=== PATIENT | male | born 1985 | race Hispanic/Latino ===

== ENCOUNTER 2020-10-23 14:05 | Emergency (ER) | payer SELFPAY ==
[~2020-10-23] VITALS: Ht 177.8 cm; Wt 96.2 kg
[2020-10-23] MEDS ORDERED: FAMOTIDINE20 MG PO (14:33)
[2020-10-23] MEDS ORDERED: ZOFRAN4 MG PO (14:33)
[2020-10-23] MEDS ORDERED: MAALOX MAXIMUM355 ML PO (14:33)
== END 2020-10-23 14:52 | disposition home or self-care (01) ==
LOC: FSED 14:33
DX: R11.2 Nausea with vomiting, unspecified (principal); T67.5XXA Heat exhaustion, unspecified, initial encounter; F17.210 Nicotine dependence, cigarettes, uncomplicated
CPT/HCPCS: 99283